=== PATIENT | female | born 1930 | race Caucasian/White ===

== ENCOUNTER 2016-09-11 09:37 | Inpatient (IN) ==
--- NOTE | 2016-09-11 16:05 | Internal Med History&Physical ---
Date of Encounter: 09/11/16 Time of Encounter: 16:03 Assessment and Plan (1) Arthritis of left knee Current visit: No Status: Chronic Patient's initial complaint was to do preop workup for her knee replacement. But this was complicated by medical issues. (2) Hypomagnesemia Current visit: No Status: Acute Rarely cardiac arrest was secondary to the hypomagnesemia. This is being corrected (3) Hypokalemia Current visit: No Status: Resolved This might of been a contributing factor (4) Atrial arrhythmia Current visit: No Status: Acute There is to be stable at this point (5) CAD (coronary artery disease) Current visit: No Status: Chronic History of stent Qualifiers: Coronary Disease-Associated Artery/Lesion type: [place] artery [place] vs. transplanted heart: [place] heart Associated angina: without angina Qualified Code(s): I25.10 - Atherosclerotic heart disease of [place] coronary artery without angina pectoris (6) Anemia Current visit: No Status: Acute Qualifiers: Anemia type: other cause Other causes of anemia: acute posthemorrhagic Qualified Code(s): D62 - Acute posthemorrhagic anemia (7) GI bleed Current visit: No Status: Resolved This is resolved Qualifiers: GI bleed type/associated pathology: melena Qualified Code(s): K92.1 - Melena (8) C. difficile diarrhea Current visit: No Status: Acute Today was the last day of antibiotics for the C. difficile Internal Medicine - H&P: HPI Chief complaint: This patient was doing a preoperative workup for a total knee replacement w History of present illness: Ms. Maciel is a 86 year old female The rest was very brief and was found the patient was showing very low magnesium. This is been replaced and she has been stable since. But she also had a UTI and some other issues. Because of that she cannot have her total knee replacement for some time. Now the knees become terribly painful so she was sent here for rehabilitation to help her to be able to ambulate and do some ADLs Past Med Surg Social Fam HX - Past Medical History Medical history: arthritis, coronary artery disease, hyperlipidemia, hypertension Psychiatric history: no psych history - Social History Smoking Status: Never smoker Smokeless Tobacco Status: No Alcohol use: none Drug use: none - Family History Mother Living Status: Hx Family Cardiac Disorders: Yes Hx Family Respiratory Disorders: No Hx Family Cancer: No Hx Family GI Disorders: No Hx Family Endocrine Disorder: Yes (Diabetic) Hx Family Neuromuscular Disorders: No Hx Family Neurologic Disorders: No Hx Family HEENT Disorders: No Hx Family Autoimmune Disorders: No Internal Medicine - H&P: Meds Multivitamin [Multivitamins] 1 tab PO DAILY 04/09/16 [History] Simvastatin [Zocor] 40 mg PO HS 04/09/16 [History] Diclofenac Sodium [Voltaren] 4 gm TP QID PRN 08/23/16 [History] LORazepam [Ativan] 0.5 mg PO TID PRN 08/23/16 [History] Docusate [Colace] 100 mg PO BID capsule 09/11/16 [Rx] MOM Conc [MILK OF MAGNESIA conc] 10 ml PO DAILY PRN #0 ud.liq 09/11/16 [Rx] Magnesium Oxide [Mag-Ox] 400 mg PO TID tablet 09/11/16 [Rx] Metoprolol XL (24 HR) Succ [Toprol Xl] 12.5 mg PO DAILY tab.er.24h 09/11/16 [Rx ] MetroNIDAZOLE [Flagyl] 500 mg PO Q8H tablet 09/11/16 [Rx] Omeprazole [PriLOSEC] 20 mg PO BIDAC capsule. 09/11/16 [Rx] OxyCODONE ER (12 HR) [OxyCONTIN] 20 mg PO Q12HR #6 tab.er.12h 09/11/16 [Rx] OxyCODONE/APAP 7.5/325 [Percocet 7.5/325 MG] 1 each PO Q3HR PRN #12 tablet 09/11 [Rx] Potassium Chloride 20 meq PO DAILY tab.er.prt 09/11/16 [Rx] Sucralfate [Carafate] 1 gm PO TID tablet 09/11/16 [Rx] Allergies No Known Allergies Allergy (Verified 04/09/16 07:21) All Systems PM: A 10-system review of systems was performed and is negative for pertinent findings except as documented above in the HPI. - Constitutional Vitals: Temp Resp BP Pulse Ox 99.3 F 18 107/75 95 09/11/16 15:31 09/11/16 15:31 09/11/16 15:31 09/11/16 15:31 - Head Head exam: Present: atraumatic, normocephalic - Neck Neck exam general surgery: Present: supple, trachea midline. Absent: lymphadenopathy - Respiratory Respiratory exam: Present: CTAB. Absent: accessory muscle use, rales, rhonchi, wheezes - Cardiovascular Cardiovascular exam: Present: RRR, +S1, +S2. Absent: diastolic murmur, gallop, rubs, systolic murmur - GI/Abdominal GI/Abdominal exam: Present: normal bowel sounds, soft, no peritoneal signs. Absent: distended, tenderness - Expanded Lower Extremities Exam Knee exam: Present: tenderness (Entire knee area is very tender. She does not feel that she can weight-bear at this point.) Internal Med - H&P Results - Labs Labs: Labs pending
[2016-09-11] MEDS ORDERED: MOM Conc 10 ML UD.LIQ PO PRN (16:08)
[2016-09-11] MEDS: *HR* OxyCODONE ER (12 HR) 20 MG TABLET PO SCH (17:48)
[2016-09-11] MEDS: MetroNIDAZOLE 500 MG TABLET PO SCH (20:43)
[2016-09-11] MEDS: Magnesium Oxide 400 MG TABLET PO SCH (20:43)
[2016-09-11] MEDS: *HR* OxyCODONE/APAP 7.5/325 TABLET PO PRN (20:43)
[2016-09-11] MEDS: Sucralfate 1 GM TABLET PO SCH (20:43)
[2016-09-12] MEDS: *HR* OxyCODONE ER (12 HR) 20 MG TABLET PO SCH ×2 (05:04→16:56)
[2016-09-12] MEDS: *HR* Enoxaparin 40 MG/0.4 ML SYRINGE SQ SCH (05:04)
[2016-09-12 05:22] LABS: INR 1.3
[2016-09-12 05:25] LABS: Activated Partial Thrombo Time 28.6 Seconds (26.0-36.0)
[2016-09-12 05:26] LABS: Basophils % 0.4 %; Eosinophils % 0.2 %; Hematocrit 31.2 % (35.3-44.9); Hemoglobin 9.9 g/dL (11.5-15.4); Immature Granulocytes % 0.3 % (0-4); Lymphocytes % 20.7 %; Mean Corpuscular HGB Conc 31.7 g/dL (31.6-35.5); Mean Corpuscular Hemoglobin 29.6 pg (28.0-33.3); Mean Corpuscular Volume 93.1 fL (83.0-100.0); Mean Platelet Volume 9.7 fL (9.4-12.4); Monocytes # 1.2 K/mcL (0.0-1.3); Monocytes % 12.6 %; Neutrophils # 6.4 K/mcL (1.6-8.9); Platelet Count 245 K/mcL (140-400); Red Blood Count 3.35 M/mcL (3.82-4.97); Segmented Neutrophils % 65.8 %
[2016-09-12 05:31] LABS: BUN/Creatinine Ratio 18 (6-26); Blood Urea Nitrogen 11 mg/dL (7-20); Carbon Dioxide 22 mEq/L (19-29); Chloride 100 mEq/L (98-109); Glucose 118 mg/dL (70-99); Osmolality,Calculated 276 (280-300); Sodium 133 mEq/L (136-145); eGFR For African Americans > 60 (> 60); eGFR For Non-African Americans > 60 (> 60)
[2016-09-12] MEDS: MetroNIDAZOLE 500 MG TABLET PO SCH ×3 (09:11→22:03)
[2016-09-12] MEDS: *HR* OxyCODONE/APAP 7.5/325 TABLET PO PRN ×3 (09:11→22:06)
[2016-09-12] MEDS: Metoprolol XL (24 HR) Succ 25 MG TAB.ER.24H PO SCH (09:11)
[2016-09-12] MEDS: Magnesium Oxide 400 MG TABLET PO SCH ×3 (09:12→22:04)
[2016-09-12] MEDS: Sucralfate 1 GM TABLET PO SCH ×3 (09:12→22:05)
[2016-09-12] MEDS ORDERED: Lidocaine 1% 20 ML MDV ID ONE (14:11)
[2016-09-12] MEDS ORDERED: MethylPREDNISolone Acet(DEPOT) 40 MG/ML VIAL IM ONE (14:11)
--- NOTE | 2016-09-12 15:01 | Internal Med Progress Note ---
Date of Encounter: 09/12/16 Time of Encounter: 14:59 - Assessment and plan (1) Arthritis of left knee Current Visit: Yes Status: Chronic Assessment and plan: Patient had severe arthritis that was really bothering her and was scheduled for total knee replacement. At her pre-surgical evaluation she had a cardiac arrest in all this is been put on hold (2) Hypomagnesemia Current Visit: No Status: Acute Assessment and plan: They have felt that the possibility of a short cardiac arrest was due to the hypomagnesemia (3) Atrial arrhythmia Current Visit: No Status: Acute Assessment and plan: No evidence of uncontrolled heart rate (4) CAD (coronary artery disease) Current Visit: No Status: Chronic Assessment and plan: By history Qualifiers: Coronary Disease-Associated Artery/Lesion type: [place] artery [place] vs. transplanted heart: [place] heart Associated angina: without angina Qualified Code(s): I25.10 - Atherosclerotic heart disease of [place] coronary artery without angina pectoris (5) Anemia Current Visit: No Status: Chronic Assessment and plan: Noted Qualifiers: Anemia type: other cause Other causes of anemia: acute posthemorrhagic Qualified Code(s): D62 - Acute posthemorrhagic anemia (6) C. difficile diarrhea Current Visit: No Status: Acute Assessment and plan: Resolved - Time Spent With Patient less than 15 minutes - Subjective Interval history: Cimetidine overly is doing well. She still has a lot of pain and anxiety. But she agreed to let Dr. Lucas inject her knee with Depo-Medrol and Xylocaine. I will see if this helps which will allow her to do more therapy. In addition she will be seeing Dr. Sekou Lindsay on Saturday a.m. for similar evaluation injection - Constitutional Vitals: Temp Pulse Resp BP Pulse Ox 98.2 F 99 18 101/74 95 09/12/16 11:14 09/12/16 12:03 09/12/16 12:03 09/12/16 11:14 09/12/16 12:03 - Head Head exam: Present: atraumatic, normal inspection, normocephalic - Neck Neck exam general surgery: Present: supple, trachea midline. Absent: lymphadenopathy - Respiratory Respiratory exam: Present: CTAB. Absent: accessory muscle use, rales, rhonchi, wheezes - Cardiovascular Cardiovascular exam: Present: RRR, +S1, +S2. Absent: diastolic murmur, gallop, rubs, systolic murmur Internal Medicine: Result - Labs CBC & Chem 7: 09/12/16 04:50 09/12/16 04:50 Labs: Short CBC 09/12/16 Range/Units 04:50 WBC 9.7 (4.3-11.1) K/mcL Hgb 9.9 L (11.5-15.4) g/dL Hct 31.2 L (35.3-44.9) % Plt Count 245 (140-400) K/mcL Neutrophils # 6.4 (1.6-8.9) K/mcL BMP 09/12/16 04:50 Sodium 133 L Potassium 5.0 H Chloride 100 Carbon Dioxide 22 BUN 11 Creatinine 0.61 Glucose 118 H Calcium 10.0 Laboratory is okay - ABG Interpretation ABG results: PT/INR, D-dimer PT 14.0 Seconds (9.4-12.1) H 09/12/16 04:50 Consult Discharge Plan - Plan Referrals: Tha Sanchez Jr, MD [Primary Care Provider] -
--- NOTE | 2016-09-12 15:28 | Physcial Medicine-Consult Note ---
Date of Encounter: 09/12/16 Time of Encounter: 15:26 Physical Medicine - AP (1) Arthritis of left knee Status: Chronic Code(s): M17.12 - Unilateral primary osteoarthritis, left knee SNOMED Code(s): 330429106 Physical Medicine - HPI - Data of Consult Consult date: 09/12/16 Requesting Physician: Pan Dawkins DO Primary Care Provider: Tha Sanchez Jr, MD - Consult Narrative Reason for consult: Left knee osteoarthritis/pain History of present illness: Ms. Maciel is a 86 year old female who was admitted for inpatient rehabilitation. She sustained an TN during pre-op testing for an elective left TKA. Patient has been complaining of severe left knee pain and is limited in her ability to participate with therapy due to pain. CC: Pan Dawkins DO Past Med Surg Social Fam HX - Past Medical History Medical history: arthritis, coronary artery disease, hyperlipidemia, hypertension Psychiatric history: no psych history - Social History Smoking Status: Never smoker Smokeless Tobacco Status: No Alcohol use: none Drug use: none - Family History Mother Living Status: Hx Family Cardiac Disorders: Yes Hx Family Respiratory Disorders: No Hx Family Cancer: No Hx Family GI Disorders: No Hx Family Endocrine Disorder: Yes (Diabetic) Hx Family Neuromuscular Disorders: No Hx Family Neurologic Disorders: No Hx Family HEENT Disorders: No Hx Family Autoimmune Disorders: No Medications and Allergies Multivitamin [Multivitamins] 1 tab PO DAILY 04/09/16 [History] Simvastatin [Zocor] 40 mg PO HS 04/09/16 [History] Diclofenac Sodium [Voltaren] 4 gm TP QID PRN 08/23/16 [History] LORazepam [Ativan] 0.5 mg PO TID PRN 08/23/16 [History] Docusate [Colace] 100 mg PO BID capsule 09/11/16 [Rx] MOM Conc [MILK OF MAGNESIA conc] 10 ml PO DAILY PRN #0 ud.liq 09/11/16 [Rx] Magnesium Oxide [Mag-Ox] 400 mg PO TID tablet 09/11/16 [Rx] Metoprolol XL (24 HR) Succ [Toprol Xl] 12.5 mg PO DAILY tab.er.24h 09/11/16 [Rx ] MetroNIDAZOLE [Flagyl] 500 mg PO Q8H tablet 09/11/16 [Rx] Omeprazole [PriLOSEC] 20 mg PO BIDAC capsule. 09/11/16 [Rx] OxyCODONE ER (12 HR) [OxyCONTIN] 20 mg PO Q12HR #6 tab.er.12h 09/11/16 [Rx] OxyCODONE/APAP 7.5/325 [Percocet 7.5/325 MG] 1 each PO Q3HR PRN #12 tablet 09/11 [Rx] Potassium Chloride 20 meq PO DAILY tab.er.prt 09/11/16 [Rx] Sucralfate [Carafate] 1 gm PO TID tablet 09/11/16 [Rx] Allergies No Known Allergies Allergy (Verified 04/09/16 07:21) - Cardiovascular Cardiovascular: Present: chest pain with activity. Absent: chest pain - Respiratory Respiratory: Absent: dyspnea - Musculoskeletal Musculoskeletal: Present: arthralgias Physical Medicine - Exam - Constitutional Vitals: Temp Pulse Resp BP Pulse Ox 98.2 F 99 18 101/74 95 09/12/16 11:14 09/12/16 12:03 09/12/16 12:03 09/12/16 11:14 09/12/16 12:03 General appearance: cooperative, no acute distress - Extremities Exam Extremities exam: Absent: calf tenderness Additional comments: Left knee is swollen. She complains of pain with PROM of the knee. Pain with palpation of the medial and lateral joint lines. Physical Medicine - Results - Labs CBC & Chem 7: 09/12/16 04:50 09/12/16 04:50 Labs: Short CBC 09/12/16 Range/Units 04:50 WBC 9.7 (4.3-11.1) K/mcL Hgb 9.9 L (11.5-15.4) g/dL Hct 31.2 L (35.3-44.9) % Plt Count 245 (140-400) K/mcL Neutrophils # 6.4 (1.6-8.9) K/mcL BMP 09/12/16 04:50 Sodium 133 L Potassium 5.0 H Chloride 100 Carbon Dioxide 22 BUN 11 Creatinine 0.61 Glucose 118 H Calcium 10.0 Procedures: Physical Medicine - Joint Aspiration/Injection Joint Aspiration/Injection 1 Consent obtained: verbal consent Time out performed: No Side of body: left Joint aspirated: knee Ultrasound guidance: No Skin prep: sterile prep and drape Local anesthesia used: other Amount of anesthesia used (mLs): 0 Needle size used: 22G Medication injected, if any: Methylprednisolone Patient tolerated procedure: well, no complications Complications: none Consult Discharge Plan - Plan Referrals: Tha Sanchez Jr, MD [Primary Care Provider] -
[2016-09-13] MEDS: *HR* Enoxaparin 40 MG/0.4 ML SYRINGE SQ SCH (06:38)
[2016-09-13] MEDS: *HR* OxyCODONE ER (12 HR) 20 MG TABLET PO SCH ×2 (06:38→18:18)
[2016-09-13] MEDS: Metoprolol XL (24 HR) Succ 25 MG TAB.ER.24H PO SCH (08:54)
[2016-09-13] MEDS: MetroNIDAZOLE 500 MG TABLET PO SCH ×3 (08:55→21:55)
[2016-09-13] MEDS: Sucralfate 1 GM TABLET PO SCH ×3 (08:55→21:55)
[2016-09-13] MEDS: *HR* OxyCODONE/APAP 7.5/325 TABLET PO PRN ×3 (08:55→21:55)
--- NOTE | 2016-09-13 15:06 | Internal Med Progress Note ---
Date of Encounter: 09/13/16 Time of Encounter: 15:05 - Assessment and plan (1) Arthritis of left knee Current Visit: Yes Status: Chronic Assessment and plan: Asians problems all stem from her knee pain. This lady was working full-time woke up Saturday morning 2 weeks ago her week ago and noted that her knee her (2) Hypomagnesemia Current Visit: No Status: Acute Assessment and plan: Her magnesium was current (3) Atrial arrhythmia Current Visit: No Status: Acute Assessment and plan: No evidence of problems with heart rate (4) CAD (coronary artery disease) Current Visit: No Status: Chronic Assessment and plan: By history Qualifiers: Coronary Disease-Associated Artery/Lesion type: [place] artery [place] vs. transplanted heart: [place] heart Associated angina: without angina Qualified Code(s): I25.10 - Atherosclerotic heart disease of [place] coronary artery without angina pectoris (5) Anemia Current Visit: No Status: Chronic Qualifiers: Anemia type: other cause Other causes of anemia: acute posthemorrhagic Qualified Code(s): D62 - Acute posthemorrhagic anemia (6) C. difficile diarrhea Current Visit: No Status: Acute Assessment and plan: Resolved - Subjective Interval history: Well the patient today states knee feels a little better but she still resistant staph moving her. So we have told her now the insurance seizures she is not cooperating they will make her be discharged - Constitutional Vitals: Temp Pulse Resp BP Pulse Ox 97.9 F 93 16 106/62 94 09/13/16 07:05 09/13/16 07:05 09/13/16 07:05 09/13/16 07:05 09/13/16 07:05 - Head Head exam: Present: atraumatic, normal inspection, normocephalic - Respiratory Respiratory exam: Present: CTAB. Absent: accessory muscle use, rales, rhonchi, wheezes - Cardiovascular Cardiovascular exam: Present: RRR, +S1, +S2. Absent: diastolic murmur, gallop, rubs, systolic murmur - GI/Abdominal GI/Abdominal exam: Present: normal bowel sounds, soft, no peritoneal signs. Absent: distended, tenderness Internal Medicine: Result - Labs CBC & Chem 7: 09/12/16 04:50 09/12/16 04:50 Labs: Lab is stable - ABG Interpretation ABG results: PT/INR, D-dimer PT 14.0 Seconds (9.4-12.1) H 09/12/16 04:50 Consult Discharge Plan - Plan Referrals: Tha Sanchez Jr, MD [Primary Care Provider] -
[2016-09-13] MEDS: Magnesium Oxide 400 MG TABLET PO SCH ×3 (15:21→21:55)
[2016-09-14] MEDS: *HR* Enoxaparin 40 MG/0.4 ML SYRINGE SQ SCH (05:28)
[2016-09-14] MEDS: *HR* OxyCODONE ER (12 HR) 20 MG TABLET PO SCH ×2 (05:28→18:12)
[2016-09-14] MEDS: Sucralfate 1 GM TABLET PO SCH ×3 (09:02→21:56)
[2016-09-14] MEDS: Metoprolol XL (24 HR) Succ 25 MG TAB.ER.24H PO SCH (09:02)
[2016-09-14] MEDS: *HR* OxyCODONE/APAP 7.5/325 TABLET PO PRN ×3 (09:02→21:58)
[2016-09-14] MEDS: MetroNIDAZOLE 500 MG TABLET PO SCH ×3 (09:03→21:57)
[2016-09-14] MEDS: Magnesium Oxide 400 MG TABLET PO SCH ×3 (09:03→21:57)
--- NOTE | 2016-09-14 14:46 | Internal Med Progress Note ---
Date of Encounter: 09/14/16 Time of Encounter: 14:44 - Assessment and plan (1) Arthritis of left knee Current Visit: Yes Status: Chronic Assessment and plan: Patient has had a lot of painful problems with her knee since Saturday a week. She was scheduled for total knee replacement but upon preop testing at a cardiac arrest (2) Hypomagnesemia Current Visit: No Status: Acute Assessment and plan: Will check the magnesium (3) Atrial arrhythmia Current Visit: No Status: Acute Assessment and plan: No evidence right now (4) CAD (coronary artery disease) Current Visit: No Status: Chronic Qualifiers: Coronary Disease-Associated Artery/Lesion type: [place] artery [place] vs. transplanted heart: [place] heart Associated angina: without angina Qualified Code(s): I25.10 - Atherosclerotic heart disease of [place] coronary artery without angina pectoris (5) Anemia Current Visit: No Status: Chronic Assessment and plan: G of anemia Qualifiers: Anemia type: other cause Other causes of anemia: acute posthemorrhagic Qualified Code(s): D62 - Acute posthemorrhagic anemia (6) C. difficile diarrhea Current Visit: No Status: Acute Assessment and plan: Resolved - Time Spent With Patient less than 15 minutes - Constitutional Vitals: Temp Pulse Resp BP Pulse Ox 97.7 F 104 18 102/68 94 09/14/16 06:36 09/14/16 06:36 09/14/16 06:36 09/14/16 06:36 09/14/16 06:36 - Head Head exam: Present: atraumatic, normal inspection, normocephalic - Neck Neck exam general surgery: Present: supple, trachea midline. Absent: lymphadenopathy - Respiratory Respiratory exam: Present: CTAB. Absent: accessory muscle use, rales, rhonchi, wheezes - Cardiovascular Cardiovascular exam: Present: RRR, +S1, +S2. Absent: diastolic murmur, gallop, rubs, systolic murmur Internal Medicine: Result - Labs CBC & Chem 7: 09/12/16 04:50 09/12/16 04:50 Labs: Lab is stable - ABG Interpretation ABG results: PT/INR, D-dimer PT 14.0 Seconds (9.4-12.1) H 09/12/16 04:50 Consult Discharge Plan - Plan Referrals: Tha Sanchez Jr, MD [Primary Care Provider] -
[2016-09-14] MEDS: *HR* LORazepam 0.5 MG TABLET PO PRN (21:58)
[2016-09-15 05:21] LABS: BUN/Creatinine Ratio 33 (6-26); Blood Urea Nitrogen 21 mg/dL (7-20); Calcium 10.3 mg/dL (8.6-10.8); Carbon Dioxide 21 mEq/L (19-29); Chloride 98 mEq/L (98-109); Glucose 97 mg/dL (70-99); Osmolality,Calculated 271 (280-300); Potassium 5.2 mEq/L (3.5-4.5); Sodium 129 mEq/L (136-145); eGFR For African Americans > 60 (> 60); eGFR For Non-African Americans > 60 (> 60)
[2016-09-15] MEDS: *HR* Enoxaparin 40 MG/0.4 ML SYRINGE SQ SCH (06:34)
[2016-09-15] MEDS: *HR* OxyCODONE ER (12 HR) 20 MG TABLET PO SCH ×2 (06:35→16:55)
[2016-09-15] MEDS: *HR* OxyCODONE/APAP 7.5/325 TABLET PO PRN ×2 (09:10→21:49)
[2016-09-15] MEDS: Sucralfate 1 GM TABLET PO SCH ×3 (09:11→21:44)
[2016-09-15] MEDS: Metoprolol XL (24 HR) Succ 25 MG TAB.ER.24H PO SCH (09:11)
[2016-09-15] MEDS: MetroNIDAZOLE 500 MG TABLET PO SCH ×3 (09:11→21:44)
[2016-09-15] MEDS: Magnesium Oxide 400 MG TABLET PO SCH ×3 (09:11→21:45)
--- NOTE | 2016-09-15 09:30 | Internal Med Progress Note ---
Date of Encounter: 09/15/16 Time of Encounter: 09:28 - Assessment and plan (1) Weakness Current Visit: Yes Status: Chronic Assessment and plan: PT OT working on improving strength. Has electrolytes issues. Sodium is down to 129. Potassium is up at 5.2 but the patient was given potassium supplement. BUN is up to 21. We will give fluid bolus. Watch electrolytes. - Time Spent With Patient less than 15 minutes - Subjective Interval history: Still complains of generalized weakness. Still complains of chronic pain. Refusing to drink. Afraid of getting up and going to the bedside commode. No shortness of breath. No chest pain - Constitutional Vitals: Temp Pulse Resp BP Pulse Ox 98.2 F 99 18 110/73 94 09/15/16 06:55 09/15/16 06:55 09/15/16 06:55 09/15/16 06:55 09/15/16 06:55 General appearance: Present: cachectic, A&O X 3, no acute distress - Respiratory Respiratory exam: Present: CTAB. Absent: accessory muscle use, rales, rhonchi, wheezes - Cardiovascular Cardiovascular exam: Present: RRR, +S1, +S2. Absent: diastolic murmur, gallop, rubs, systolic murmur - GI/Abdominal GI/Abdominal exam: Present: normal bowel sounds, soft, no peritoneal signs. Absent: distended, tenderness - Extremities Exam Extremities exam: Present: warm, radial pulses palpable and symetrical. Absent : calf tenderness, cyanotic, pedal edema Internal Medicine: Result - Labs CBC & Chem 7: 09/12/16 04:50 09/15/16 05:00 Labs: BMP 09/15/16 05:00 Sodium 129 L Potassium 5.2 H Chloride 98 Carbon Dioxide 21 BUN 21 H Creatinine 0.63 Glucose 97 Calcium 10.3 - ABG Interpretation ABG results: PT/INR, D-dimer PT 14.0 Seconds (9.4-12.1) H 09/12/16 04:50 Consult Discharge Plan - Plan Referrals: Tha Sanchez Jr, MD [Primary Care Provider] -
[2016-09-15] MEDS: *HR* LORazepam 0.5 MG TABLET PO PRN (21:49)
[2016-09-16 05:12] LABS: BUN/Creatinine Ratio 27 (6-26); Blood Urea Nitrogen 19 mg/dL (7-20); Calcium 10.1 mg/dL (8.6-10.8); Carbon Dioxide 20 mEq/L (19-29); Chloride 97 mEq/L (98-109); Glucose 97 mg/dL (70-99); Osmolality,Calculated 270 (280-300); Potassium 5.5 mEq/L (3.5-4.5); Sodium 129 mEq/L (136-145); eGFR For African Americans > 60 (> 60); eGFR For Non-African Americans > 60 (> 60)
[2016-09-16] MEDS: *HR* Enoxaparin 40 MG/0.4 ML SYRINGE SQ SCH (05:29)
[2016-09-16] MEDS: *HR* OxyCODONE ER (12 HR) 20 MG TABLET PO SCH ×2 (05:29→17:36)
[2016-09-16] MEDS: *HR* OxyCODONE/APAP 7.5/325 TABLET PO PRN ×3 (08:59→20:35)
[2016-09-16] MEDS: Metoprolol XL (24 HR) Succ 25 MG TAB.ER.24H PO SCH (08:59)
[2016-09-16] MEDS: Sucralfate 1 GM TABLET PO SCH ×3 (08:59→20:34)
[2016-09-16] MEDS: Magnesium Oxide 400 MG TABLET PO SCH ×3 (08:59→20:35)
[2016-09-16] MEDS: MetroNIDAZOLE 500 MG TABLET PO SCH ×3 (08:59→20:34)
--- NOTE | 2016-09-16 10:53 | Internal Med Progress Note ---
Date of Encounter: 09/16/16 Time of Encounter: 10:51 - Assessment and plan (1) Arthritis of left knee Current Visit: Yes Status: Chronic Assessment and plan: The knee really was acute and it is somewhat improved since he injections. (2) Hypomagnesemia Current Visit: No Status: Acute Assessment and plan: checking magnesium. Current lab is 2. (3) Atrial arrhythmia Current Visit: No Status: Acute Assessment and plan: She is stable and heart rate (4) CAD (coronary artery disease) Current Visit: No Status: Chronic Qualifiers: Coronary Disease-Associated Artery/Lesion type: [place] artery [place] vs. transplanted heart: [place] heart Associated angina: without angina Qualified Code(s): I25.10 - Atherosclerotic heart disease of [place] coronary artery without angina pectoris (5) Anemia Current Visit: No Status: Chronic Qualifiers: Anemia type: other cause Other causes of anemia: acute posthemorrhagic Qualified Code(s): D62 - Acute posthemorrhagic anemia (6) C. difficile diarrhea Current Visit: No Status: Acute - Subjective Interval history: Patient is actually moving better with less complaining. - Constitutional Vitals: Temp Pulse Resp BP Pulse Ox 98.7 F 100 20 105/63 97 09/16/16 06:56 09/16/16 06:56 09/16/16 06:56 09/16/16 06:56 09/16/16 06:56 General appearance: Present: cachectic, A&O X 3, no acute distress - Head Head exam: Present: atraumatic, normocephalic - Neck Neck exam general surgery: Present: supple, trachea midline. Absent: lymphadenopathy - Respiratory Respiratory exam: Present: CTAB. Absent: accessory muscle use, rales, rhonchi, wheezes - Cardiovascular Cardiovascular exam: Present: RRR, +S1, +S2. Absent: diastolic murmur, gallop, rubs, systolic murmur Internal Medicine: Result - Labs CBC & Chem 7: 09/12/16 04:50 09/16/16 04:40 Labs: BMP 09/16/16 04:40 Sodium 129 L Potassium 5.5 H Chloride 97 L Carbon Dioxide 20 BUN 19 Creatinine 0.71 Glucose 97 Calcium 10.1 See the labs are potassium supplement little bit of blood clear why her sodium slightly down this may be dilutional and I am going to add some Lasix - ABG Interpretation ABG results: PT/INR, D-dimer PT 14.0 Seconds (9.4-12.1) H 09/12/16 04:50 Consult Discharge Plan - Plan Referrals: Tha Sanchez Jr, MD [Primary Care Provider] -
[2016-09-16] MEDS: Furosemide 20 MG TABLET PO SCH ×2 (11:52→17:36)
[2016-09-16] MEDS: *HR* LORazepam 0.5 MG TABLET PO PRN (20:35)
[2016-09-17] MEDS: *HR* Enoxaparin 40 MG/0.4 ML SYRINGE SQ SCH (05:32)
[2016-09-17] MEDS: *HR* OxyCODONE ER (12 HR) 20 MG TABLET PO SCH ×2 (05:33→17:23)
[2016-09-17 06:10] LABS: Basophils % 0.2 %; Eosinophils % 0.1 %; Hematocrit 26.4 % (35.3-44.9); Hemoglobin 8.7 g/dL (11.5-15.4); Immature Granulocytes % 0.6 % (0-4); Lymphocytes # 1.7 K/mcL (0.6-4.6); Lymphocytes % 14.8 %; Mean Corpuscular Hemoglobin 30.5 pg (28.0-33.3); Mean Corpuscular Volume 92.6 fL (83.0-100.0); Mean Platelet Volume 9.8 fL (9.4-12.4); Monocytes # 1.6 K/mcL (0.0-1.3); Monocytes % 14.1 %; Neutrophils # 7.9 K/mcL (1.6-8.9); Platelet Count 325 K/mcL (140-400); Red Blood Count 2.85 M/mcL (3.82-4.97); Red Cell Distribution Width 14.8 % (11.5-14.5); Segmented Neutrophils % 70.2 %
[2016-09-17 06:25] LABS: BUN/Creatinine Ratio 28 (6-26); Blood Urea Nitrogen 18 mg/dL (7-20); Calcium 9.6 mg/dL (8.6-10.8); Carbon Dioxide 23 mEq/L (19-29); Chloride 96 mEq/L (98-109); Glucose 113 mg/dL (70-99); Osmolality,Calculated 269 (280-300); Potassium 4.3 mEq/L (3.5-4.5); Sodium 128 mEq/L (136-145); eGFR For African Americans > 60 (> 60); eGFR For Non-African Americans > 60 (> 60)
[2016-09-17] MEDS: Metoprolol XL (24 HR) Succ 25 MG TAB.ER.24H PO SCH (08:31)
[2016-09-17] MEDS: MetroNIDAZOLE 500 MG TABLET PO SCH ×3 (08:31→21:23)
[2016-09-17] MEDS: Sucralfate 1 GM TABLET PO SCH ×3 (08:32→21:22)
[2016-09-17] MEDS: *HR* OxyCODONE/APAP 7.5/325 TABLET PO PRN ×3 (08:32→21:24)
[2016-09-17] MEDS: Magnesium Oxide 400 MG TABLET PO SCH ×3 (08:32→21:23)
[2016-09-17] MEDS: Furosemide 20 MG TABLET PO SCH ×2 (08:32→17:23)
[2016-09-17] MEDS: *HR* LORazepam 0.5 MG TABLET PO PRN ×2 (14:52→21:24)
--- NOTE | 2016-09-17 17:37 | Internal Med Progress Note ---
Date of Encounter: 09/17/16 Time of Encounter: 17:36 - Assessment and plan (1) Arthritis of left knee Current Visit: Yes Status: Chronic Assessment and plan: Patient will eventually hopefully get a total knee replacement. But the injections of temporarily helped her move about (2) Hypomagnesemia Current Visit: No Status: Acute Assessment and plan: Knees he was checked and seemed to be 2.0 (3) Atrial arrhythmia Current Visit: No Status: Acute Assessment and plan: And no evidence of uncontrolled heart rate (4) CAD (coronary artery disease) Current Visit: No Status: Chronic Assessment and plan: By history Qualifiers: Coronary Disease-Associated Artery/Lesion type: [place] artery [place] vs. transplanted heart: [place] heart Associated angina: without angina Qualified Code(s): I25.10 - Atherosclerotic heart disease of [place] coronary artery without angina pectoris (5) Anemia Current Visit: No Status: Chronic Assessment and plan: Noted Qualifiers: Anemia type: other cause Other causes of anemia: acute posthemorrhagic Qualified Code(s): D62 - Acute posthemorrhagic anemia (6) C. difficile diarrhea Current Visit: No Status: Acute Assessment and plan: Resolved - Time Spent With Patient less than 15 minutes - Subjective Interval history: Patient is actually moving better with less complaining. Patient is using the bedside commode and she is using wheelchair to get to the gym but then is walking parallel bar's etc. - Constitutional Vitals: Temp Pulse Resp BP Pulse Ox 98.3 F 103 17 110/67 95 09/17/16 07:35 09/17/16 07:35 09/17/16 07:35 09/17/16 07:35 09/17/16 07:35 General appearance: Present: cachectic, A&O X 3, no acute distress - Head Head exam: Present: atraumatic, normal inspection, normocephalic - Neck Neck exam general surgery: Present: supple, trachea midline. Absent: lymphadenopathy - Respiratory Respiratory exam: Present: CTAB. Absent: accessory muscle use, rales, rhonchi, wheezes - Cardiovascular Cardiovascular exam: Present: RRR, +S1, +S2. Absent: diastolic murmur, gallop, rubs, systolic murmur Internal Medicine: Result - Labs CBC & Chem 7: 09/17/16 05:15 09/17/16 05:15 Labs: Short CBC 09/17/16 Range/Units 05:15 WBC 11.3 H (4.3-11.1) K/mcL Hgb 8.7 L (11.5-15.4) g/dL Hct 26.4 L (35.3-44.9) % Plt Count 325 (140-400) K/mcL Neutrophils # 7.9 (1.6-8.9) K/mcL BMP 09/17/16 05:15 Sodium 128 L Potassium 4.3 D Chloride 96 L Carbon Dioxide 23 BUN 18 Creatinine 0.65 Glucose 113 H Calcium 9.6 - ABG Interpretation ABG results: PT/INR, D-dimer PT 14.0 Seconds (9.4-12.1) H 09/12/16 04:50 Consult Discharge Plan - Plan Referrals: Tha Sanchez Jr, MD [Primary Care Provider] -
[2016-09-18] MEDS: *HR* Enoxaparin 40 MG/0.4 ML SYRINGE SQ SCH (05:25)
[2016-09-18] MEDS: *HR* OxyCODONE ER (12 HR) 20 MG TABLET PO SCH ×2 (05:26→17:58)
[2016-09-18] MEDS: Furosemide 20 MG TABLET PO SCH (08:28)
[2016-09-18] MEDS: Magnesium Oxide 400 MG TABLET PO SCH ×3 (08:28→20:42)
[2016-09-18] MEDS: *HR* OxyCODONE/APAP 7.5/325 TABLET PO PRN ×4 (08:28→20:43)
[2016-09-18] MEDS: Metoprolol XL (24 HR) Succ 25 MG TAB.ER.24H PO SCH (08:29)
[2016-09-18] MEDS: MetroNIDAZOLE 500 MG TABLET PO SCH ×3 (08:29→20:43)
[2016-09-18] MEDS: Sucralfate 1 GM TABLET PO SCH ×3 (08:29→20:42)
[2016-09-18] MEDS: *HR* LORazepam 0.5 MG TABLET PO PRN ×2 (10:05→20:42)
--- NOTE | 2016-09-18 11:55 | Internal Med Progress Note ---
Date of Encounter: 09/18/16 Time of Encounter: 11:53 - Assessment and plan (1) Arthritis of left knee Current Visit: Yes Status: Chronic Assessment and plan: CPT OT notes the pain is improved patient is doing a little more each day (2) Hypomagnesemia Current Visit: No Status: Acute Assessment and plan: Last magnesium was normal rechecking (3) Atrial arrhythmia Current Visit: No Status: Acute Assessment and plan: No evidence of uncontrolled heart rate (4) CAD (coronary artery disease) Current Visit: No Status: Chronic Assessment and plan: History Qualifiers: Coronary Disease-Associated Artery/Lesion type: [place] artery [place] vs. transplanted heart: [place] heart Associated angina: without angina Qualified Code(s): I25.10 - Atherosclerotic heart disease of [place] coronary artery without angina pectoris (5) Anemia Current Visit: No Status: Chronic Assessment and plan: Noted Qualifiers: Anemia type: other cause Other causes of anemia: acute posthemorrhagic Qualified Code(s): D62 - Acute posthemorrhagic anemia (6) C. difficile diarrhea Current Visit: No Status: Resolved Assessment and plan: Resolve - Time Spent With Patient less than 15 minutes - Subjective Interval history: Continue to move better walked a little bit in the room and in the gym. Otherwise using wheelchair. Still complaining of pain but it is improved - Constitutional Vitals: Temp Pulse Resp BP Pulse Ox 98.4 F 103 16 100/64 95 09/18/16 06:00 09/18/16 06:00 09/18/16 06:00 09/18/16 06:00 09/18/16 06:00 General appearance: Present: cachectic, A&O X 3, no acute distress - Head Head exam: Present: atraumatic, normocephalic - Neck Neck exam general surgery: Present: supple, trachea midline. Absent: lymphadenopathy - Respiratory Respiratory exam: Present: CTAB. Absent: accessory muscle use, rales, rhonchi, wheezes - Cardiovascular Cardiovascular exam: Present: RRR, +S1, +S2. Absent: diastolic murmur, gallop, rubs, systolic murmur - GI/Abdominal GI/Abdominal exam: Present: normal bowel sounds, soft, no peritoneal signs. Absent: distended, tenderness Internal Medicine: Result - Labs CBC & Chem 7: 09/17/16 05:15 09/17/16 05:15 Labs: Sodium is still low the patient's. Osmolality is still low to finger try to increase Lasix concentrator sodium. I am also going to recheck magnesium - ABG Interpretation ABG results: PT/INR, D-dimer PT 14.0 Seconds (9.4-12.1) H 09/12/16 04:50 Consult Discharge Plan - Plan Referrals: Tha Sanchez Jr, MD [Primary Care Provider] -
[2016-09-18] MEDS: Furosemide 40 MG TABLET PO SCH ×2 (12:45→17:58)
[2016-09-19] MEDS: *HR* OxyCODONE/APAP 7.5/325 TABLET PO PRN ×4 (04:29→20:29)
[2016-09-19] MEDS: *HR* OxyCODONE ER (12 HR) 20 MG TABLET PO SCH ×2 (04:55→18:04)
[2016-09-19] MEDS: *HR* Enoxaparin 40 MG/0.4 ML SYRINGE SQ SCH (04:55)
[2016-09-19 05:40] LABS: BUN/Creatinine Ratio 26 (6-26); Blood Urea Nitrogen 17 mg/dL (7-20); Calcium 9.7 mg/dL (8.6-10.8); Carbon Dioxide 24 mEq/L (19-29); Chloride 95 mEq/L (98-109); Glucose 96 mg/dL (70-99); Osmolality,Calculated 273 (280-300); Potassium 3.8 mEq/L (3.5-4.5); Sodium 131 mEq/L (136-145); eGFR For African Americans > 60 (> 60); eGFR For Non-African Americans > 60 (> 60)
[2016-09-19] MEDS: MetroNIDAZOLE 500 MG TABLET PO SCH ×3 (08:06→20:29)
[2016-09-19] MEDS: Sucralfate 1 GM TABLET PO SCH ×3 (08:06→20:28)
[2016-09-19] MEDS: Magnesium Oxide 400 MG TABLET PO SCH ×3 (08:07→20:29)
[2016-09-19] MEDS: Metoprolol XL (24 HR) Succ 25 MG TAB.ER.24H PO SCH (08:07)
[2016-09-19] MEDS: Furosemide 40 MG TABLET PO SCH ×2 (08:07→16:02)
[2016-09-19] MEDS: *HR* LORazepam 0.5 MG TABLET PO PRN ×2 (08:07→20:29)
--- NOTE | 2016-09-19 11:39 | Internal Med Progress Note ---
Date of Encounter: 09/19/16 Time of Encounter: 11:37 - Assessment and plan (1) Arthritis of left knee Current Visit: Yes Status: Chronic Assessment and plan: Patient is here for pain in the left knee which she could not ambulate. Probably an acute inflammation or arthritis and I will start some steroids now. She did have the knee injected which has improved it some (2) Hypomagnesemia Current Visit: No Status: Acute Assessment and plan: Seems to be stable now. (3) Atrial arrhythmia Current Visit: No Status: Acute Assessment and plan: No evidence of uncontrolled heart rate (4) CAD (coronary artery disease) Current Visit: No Status: Chronic Qualifiers: Coronary Disease-Associated Artery/Lesion type: [place] artery [place] vs. transplanted heart: [place] heart Associated angina: without angina Qualified Code(s): I25.10 - Atherosclerotic heart disease of [place] coronary artery without angina pectoris (5) Anemia Current Visit: No Status: Chronic Qualifiers: Anemia type: other cause Other causes of anemia: acute posthemorrhagic Qualified Code(s): D62 - Acute posthemorrhagic anemia - Subjective Interval history: Continue to move better walked a little bit in the room and in the gym. Otherwise using wheelchair. Still complaining of pain but it is improved. In the gym working with the therapist of there will start some steroids for her to reduce any knee inflammation and may be present. - Constitutional Vitals: Temp Pulse Resp BP Pulse Ox 97.8 F 74 18 101/54 94 09/19/16 07:13 09/19/16 07:13 09/19/16 07:13 09/19/16 08:00 09/19/16 07:13 General appearance: Present: cachectic, A&O X 3, no acute distress - Head Head exam: Present: atraumatic, normal inspection, normocephalic - Neck Neck exam general surgery: Present: supple, trachea midline. Absent: lymphadenopathy - Respiratory Respiratory exam: Present: CTAB. Absent: accessory muscle use, rales, rhonchi, wheezes - Cardiovascular Cardiovascular exam: Present: RRR, +S1, +S2. Absent: diastolic murmur, gallop, rubs, systolic murmur Internal Medicine: Result - Labs CBC & Chem 7: 09/17/16 05:15 09/19/16 04:50 Labs: BMP 09/19/16 04:50 Sodium 131 L Potassium 3.8 Chloride 95 L Carbon Dioxide 24 BUN 17 Creatinine 0.66 Glucose 96 Calcium 9.7 Labs stable. The lab is improve the sodium is up a little bit benign did this via some diuresis. My impression was that this was dilutional - ABG Interpretation ABG results: PT/INR, D-dimer PT 14.0 Seconds (9.4-12.1) H 09/12/16 04:50 Consult Discharge Plan - Plan Referrals: Tha Sanchez Jr, MD [Primary Care Provider] -
[2016-09-19] MEDS ORDERED: PredniSONE 20 MG TABLET PO ONE (11:41)
--- NOTE | 2016-09-19 15:35 | Psychological Evaluation ---
Date of Encounter: 09/19/16 Time of Encounter: 10:00 History of Present Illness History of present illness: Ms. Maciel is an 86 year old female who was admitted to [facility] to address deconditioning and to improve her endurance. She had been at the hospital to undergo a total knee replacement when she suffered a heart attack. Her knee replacement surgery has been postponed pending increased strength and endurance. She was seen to assess her current cognitive and emotional functioning. Past Medical History Medical history: Significant for arthritis, coronary artery disease, hyperlipidemia and HTN. - Psychiatric History Additional Psychiatric History: There is no history of psychiatric hospitalization or mental health counseling. Ms. Maciel acknowledged that she has been prescribed "nerve pills" by her physician and has taken 3/day while at [facility]. Home Medications and Allergies Multivitamin [Multivitamins] 1 tab PO DAILY 04/09/16 [History] Simvastatin [Zocor] 40 mg PO HS 04/09/16 [History] Diclofenac Sodium [Voltaren] 4 gm TP QID PRN 08/23/16 [History] LORazepam [Ativan] 0.5 mg PO TID PRN 08/23/16 [History] Docusate [Colace] 100 mg PO BID capsule 09/11/16 [Rx] MOM Conc [MILK OF MAGNESIA conc] 10 ml PO DAILY PRN #0 ud.liq 09/11/16 [Rx] Magnesium Oxide [Mag-Ox] 400 mg PO TID tablet 09/11/16 [Rx] Metoprolol XL (24 HR) Succ [Toprol Xl] 12.5 mg PO DAILY tab.er.24h 09/11/16 [Rx ] MetroNIDAZOLE [Flagyl] 500 mg PO Q8H tablet 09/11/16 [Rx] Omeprazole [PriLOSEC] 20 mg PO BIDAC capsule. 09/11/16 [Rx] OxyCODONE ER (12 HR) [OxyCONTIN] 20 mg PO Q12HR #6 tab.er.12h 09/11/16 [Rx] OxyCODONE/APAP 7.5/325 [Percocet 7.5/325 MG] 1 each PO Q3HR PRN #12 tablet 09/11 [Rx] Potassium Chloride 20 meq PO DAILY tab.er.prt 09/11/16 [Rx] Sucralfate [Carafate] 1 gm PO TID tablet 09/11/16 [Rx] Allergies No Known Allergies Allergy (Verified 04/09/16 07:21) Social History - Social History Social History: Ms. Maciel lives with granddaughters and other family members. One of her granddaughters suddenly (June 12, 2016) of a heart attack while at Ms. Maciel's home. Another granddaughter who has spina bifida lives with Ms. Maciel as do several of her grandchildren. Ms. Maciel has 4 daughters and 1 son. A daughter lives in [place], another in [place], one in [place] and the fourth in [place]. Her son lives in [place]. 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 She reported that she kept busy. 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 She was fairly independent in her daily functioning but stated that her children would come by and help her pay bills and take care of personal papers. - Tobacco Use Smoking Status: Never smoker - Alcohol Use Alcohol Use: none Cognitive/Emotional Assessment - Cognitive Ability Additional Findings: Ms. Maciel was alert and oriented to person, place and time. She initially struggled providing the year ("1926") and the month but was able to self- correct and eventually came up with the current year and month. She exhibited some signs of confusion ("May, June, February") which she attributed to having just taken a pain medication. Speech was fluent, clear and effective. Thought processes were logical, coherent and goal-directed. She was talkative. She presented as pain-focused and made repeated statements that she hopes "my strength improves". - Emotional Status Additional Findings: Ms. Maciel was pleasant and cooperative. She was sitting in a wheelchair and focused the interview on her pain and inability to put weight on her left leg due to intense pain. She has had pain for several years and was able to stand on her feet for most of the day at work, but reported that her pain was managed with Percocet. She reportedly took 3-4 Percocet a day and was able to tolerate her pain. She has been experiencing intolerable pain since the knee surgery was postponed. She rated her current level of pain as "7-8" but it climbs to "10 " with activities. She had an injection in her left knee last week which has helped her get out of bed, but she is unable to walk functional distances. Ms. Maciel presented with somber mood and appropriate affect. She stated that her main goal is to "get out of her to get back to work and be myself again." Assessment & Plan - Diagnosis (1) Adjustment disorder with mixed anxiety and depressed mood Procedures - Intervention Interventions: Supportive Counseling - Session Time Session Start Time: 10:00 Session Stop Time: 10:30
[2016-09-20] MEDS: *HR* Enoxaparin 40 MG/0.4 ML SYRINGE SQ SCH (04:52)
[2016-09-20] MEDS: *HR* OxyCODONE ER (12 HR) 20 MG TABLET PO SCH ×2 (04:53→21:15)
[2016-09-20] MEDS: *HR* OxyCODONE/APAP 7.5/325 TABLET PO PRN ×2 (08:21→15:52)
[2016-09-20] MEDS: Metoprolol XL (24 HR) Succ 25 MG TAB.ER.24H PO SCH (08:21)
[2016-09-20] MEDS: MetroNIDAZOLE 500 MG TABLET PO SCH ×3 (08:21→21:14)
[2016-09-20] MEDS: Furosemide 40 MG TABLET PO SCH ×2 (08:22→15:52)
[2016-09-20] MEDS: Sucralfate 1 GM TABLET PO SCH ×3 (08:22→21:14)
[2016-09-20] MEDS: Magnesium Oxide 400 MG TABLET PO SCH ×3 (08:22→21:14)
[2016-09-20] MEDS: *HR* LORazepam 0.5 MG TABLET PO PRN ×2 (08:25→21:14)
--- NOTE | 2016-09-20 15:14 | Internal Med Progress Note ---
Date of Encounter: 09/20/16 Time of Encounter: 15:12 - Assessment and plan (1) Arthritis of left knee Current Visit: Yes Status: Chronic Assessment and plan: Probably an acute attack of arthritis is really left her painful joint and limited her ambulation which is now improving (2) Hypomagnesemia Current Visit: No Status: Acute Assessment and plan: Watch the magnesium she is receiving. 3 times a day. (3) Atrial arrhythmia Current Visit: No Status: Acute Assessment and plan: No evidence of uncontrolled heart rate (4) CAD (coronary artery disease) Current Visit: No Status: Chronic Qualifiers: Coronary Disease-Associated Artery/Lesion type: [place] artery [place] vs. transplanted heart: [place] heart Associated angina: without angina Qualified Code(s): I25.10 - Atherosclerotic heart disease of [place] coronary artery without angina pectoris (5) Anemia Current Visit: No Status: Chronic Assessment and plan: We will keep an eye on hemoglobin. Qualifiers: Anemia type: other cause Other causes of anemia: acute posthemorrhagic Qualified Code(s): D62 - Acute posthemorrhagic anemia - Time Spent With Patient less than 15 minutes - Subjective Interval history: I am very pleased to say that she is complaining of little less pain and feels the prednisones helping. sHe walked around the room which was excellent that is in the gym - Constitutional Vitals: Temp Pulse Resp BP Pulse Ox 99.4 F 85 18 99/64 97 09/20/16 07:00 09/20/16 07:00 09/20/16 07:00 09/20/16 07:00 09/20/16 07:00 General appearance: Present: cachectic, A&O X 3, no acute distress - Head Head exam: Present: atraumatic, normal inspection, normocephalic - Neck Neck exam general surgery: Present: supple, trachea midline. Absent: lymphadenopathy - Respiratory Respiratory exam: Present: CTAB. Absent: accessory muscle use, rales, rhonchi, wheezes - Cardiovascular Cardiovascular exam: Present: RRR, +S1, +S2. Absent: diastolic murmur, gallop, rubs, systolic murmur - GI/Abdominal GI/Abdominal exam: Present: normal bowel sounds, soft, no peritoneal signs. Absent: distended, tenderness Internal Medicine: Result - Labs CBC & Chem 7: 09/17/16 05:15 09/19/16 04:50 Labs: As I mentioned the pain is improved prednisone seems to be working the patient' s doing more each day - ABG Interpretation ABG results: PT/INR, D-dimer PT 14.0 Seconds (9.4-12.1) H 09/12/16 04:50 Consult Discharge Plan - Plan Referrals: Albino Lindsay MD [Partnered Physician] - 10/01/16 10:30 am (referral is for [place] [facility], if patient is discharge she may want to see Dr. Manley in [place]. Patient will have to cancel and reschedule if preferred. Current appointment is with Dr. Lindsay but patient has seen Sindhu in past) Tha Sanchez Jr, MD [Primary Care Provider] -
[2016-09-21] MEDS: *HR* OxyCODONE/APAP 7.5/325 TABLET PO PRN ×5 (03:55→21:50)
[2016-09-21 05:48] LABS: Hematocrit 26.6 % (35.3-44.9); Hemoglobin 8.7 g/dL (11.5-15.4)
[2016-09-21] MEDS: *HR* Enoxaparin 40 MG/0.4 ML SYRINGE SQ SCH (06:58)
[2016-09-21] MEDS: *HR* OxyCODONE ER (12 HR) 20 MG TABLET PO SCH ×2 (06:58→17:23)
[2016-09-21] MEDS: Sucralfate 1 GM TABLET PO SCH ×3 (09:26→21:47)
[2016-09-21] MEDS: Metoprolol XL (24 HR) Succ 25 MG TAB.ER.24H PO SCH (09:26)
[2016-09-21] MEDS: Magnesium Oxide 400 MG TABLET PO SCH ×3 (09:26→21:48)
[2016-09-21] MEDS: Furosemide 40 MG TABLET PO SCH ×2 (09:26→16:31)
[2016-09-21] MEDS: MetroNIDAZOLE 500 MG TABLET PO SCH ×3 (09:27→21:48)
[2016-09-21] MEDS: *HR* LORazepam 0.5 MG TABLET PO PRN ×2 (09:29→21:49)
--- NOTE | 2016-09-21 14:10 | Internal Med Progress Note ---
Date of Encounter: 09/21/16 Time of Encounter: 14:08 - Assessment and plan (1) Arthritis of left knee Current Visit: Yes Status: Chronic Assessment and plan: Patient had looks acute arthritis attack causing a lot of pain and she was unable to ambulate (2) Hypomagnesemia Current Visit: No Status: Acute Assessment and plan: Continue to watch magnesium (3) Atrial arrhythmia Current Visit: No Status: Acute Assessment and plan: No evidence poorly controlled rhythm (4) CAD (coronary artery disease) Current Visit: No Status: Chronic Assessment and plan: By history noted Qualifiers: Coronary Disease-Associated Artery/Lesion type: [place] artery [place] vs. transplanted heart: [place] heart Associated angina: without angina Qualified Code(s): I25.10 - Atherosclerotic heart disease of [place] coronary artery without angina pectoris (5) Anemia Current Visit: No Status: Chronic Assessment and plan: Noted Qualifiers: Anemia type: other cause Other causes of anemia: acute posthemorrhagic Qualified Code(s): D62 - Acute posthemorrhagic anemia - Time Spent With Patient less than 15 minutes - Subjective Interval history: I am very pleased to say that she is complaining of little less pain and feels the prednisones helping. sHe walked around the room which was excellent that is in the gym. Patient continues to improve. She walked 50 feet daily which is a very significant improvement - Constitutional Vitals: Temp Pulse Resp BP Pulse Ox 98 F 96 17 104/68 96 09/21/16 07:00 09/21/16 07:00 09/21/16 07:00 09/21/16 07:00 09/21/16 07:00 General appearance: Present: cachectic, A&O X 3, no acute distress - Head Head exam: Present: atraumatic, normocephalic - Neck Neck exam general surgery: Present: supple, trachea midline. Absent: lymphadenopathy - Respiratory Respiratory exam: Present: CTAB. Absent: accessory muscle use, rales, rhonchi, wheezes - Cardiovascular Cardiovascular exam: Present: RRR, +S1, +S2. Absent: diastolic murmur, gallop, rubs, systolic murmur Internal Medicine: Result - Labs CBC & Chem 7: 09/21/16 05:00 09/19/16 04:50 Labs: Short CBC 09/21/16 Range/Units 05:00 Hgb 8.7 L (11.5-15.4) g/dL Hct 26.6 L (35.3-44.9) % Lab is stable - ABG Interpretation ABG results: PT/INR, D-dimer PT 14.0 Seconds (9.4-12.1) H 09/12/16 04:50 Consult Discharge Plan - Plan Referrals: Albino Lindsay MD [Partnered Physician] - 10/01/16 10:30 am (referral is for [facility], if patient is discharge she may want to see Dr. Manley in [place]. Patient will have to cancel and reschedule if preferred. Current appointment is with Dr. Lindsay but patient has seen Sindhu in past) Tha Sanchez Jr, MD [Primary Care Provider] -
[2016-09-22] MEDS: *HR* Enoxaparin 40 MG/0.4 ML SYRINGE SQ SCH (04:55)
[2016-09-22] MEDS: *HR* OxyCODONE ER (12 HR) 20 MG TABLET PO SCH ×2 (04:55→18:06)
[2016-09-22] MEDS: *HR* OxyCODONE/APAP 7.5/325 TABLET PO PRN ×3 (08:52→21:51)
[2016-09-22] MEDS: Furosemide 40 MG TABLET PO SCH ×2 (08:52→18:06)
[2016-09-22] MEDS: Sucralfate 1 GM TABLET PO SCH ×3 (08:52→21:51)
[2016-09-22] MEDS: MetroNIDAZOLE 500 MG TABLET PO SCH ×3 (08:53→21:51)
[2016-09-22] MEDS: Metoprolol XL (24 HR) Succ 25 MG TAB.ER.24H PO SCH (08:53)
[2016-09-22] MEDS: Magnesium Oxide 400 MG TABLET PO SCH ×3 (08:53→21:51)
[2016-09-22] MEDS: *HR* LORazepam 0.5 MG TABLET PO PRN ×2 (12:01→21:51)
--- NOTE | 2016-09-22 12:05 | Internal Med Progress Note ---
Date of Encounter: 09/22/16 Time of Encounter: 12:04 - Assessment and plan (1) Weakness Current Visit: Yes Status: Chronic Assessment and plan: PT OT working on improving strength. Has electrolytes issues. Watch electrolytes. - Time Spent With Patient less than 15 minutes - Subjective Interval history: States that she has less swelling since Lasix was increased. Still complains of generalized weakness. Still complains of chronic pain. . No shortness of breath. No chest pain - Constitutional Vitals: Temp Pulse Resp BP Pulse Ox 97.7 F 99 18 96/57 96 09/22/16 07:07 09/22/16 07:07 09/22/16 07:07 09/22/16 07:07 09/22/16 07:07 General appearance: Present: cachectic, A&O X 3, no acute distress - Respiratory Respiratory exam: Present: CTAB. Absent: accessory muscle use, rales, rhonchi, wheezes - Cardiovascular Cardiovascular exam: Present: RRR, +S1, +S2. Absent: diastolic murmur, gallop, rubs, systolic murmur - GI/Abdominal GI/Abdominal exam: Present: normal bowel sounds, soft, no peritoneal signs. Absent: distended, tenderness - Extremities Exam Extremities exam: Present: pedal edema Internal Medicine: Result - Labs CBC & Chem 7: 09/21/16 05:00 09/19/16 04:50 - ABG Interpretation ABG results: PT/INR, D-dimer PT 14.0 Seconds (9.4-12.1) H 09/12/16 04:50 Consult Discharge Plan - Plan Referrals: Albino Lindsay MD [Partnered Physician] - 10/01/16 10:30 am (referral is for [facility], if patient is discharge she may want to see Dr. Manley in [place]. Patient will have to cancel and reschedule if preferred. Current appointment is with Dr. Lindsay but patient has seen Sindhu in past) Tha Sanchez Jr, MD [Primary Care Provider] -
[2016-09-23] MEDS: *HR* Enoxaparin 40 MG/0.4 ML SYRINGE SQ SCH (05:06)
[2016-09-23] MEDS: *HR* OxyCODONE ER (12 HR) 20 MG TABLET PO SCH ×2 (05:06→17:06)
[2016-09-23] MEDS: *HR* OxyCODONE/APAP 7.5/325 TABLET PO PRN ×2 (08:43→22:42)
[2016-09-23] MEDS: MetroNIDAZOLE 500 MG TABLET PO SCH ×3 (08:43→22:42)
[2016-09-23] MEDS: *HR* LORazepam 0.5 MG TABLET PO PRN ×2 (08:43→22:42)
[2016-09-23] MEDS: Magnesium Oxide 400 MG TABLET PO SCH ×3 (08:44→22:42)
[2016-09-23] MEDS: Sucralfate 1 GM TABLET PO SCH ×3 (08:44→22:41)
[2016-09-23] MEDS: Metoprolol XL (24 HR) Succ 25 MG TAB.ER.24H PO SCH (08:44)
[2016-09-23] MEDS: Furosemide 40 MG TABLET PO SCH ×2 (08:44→17:06)
--- NOTE | 2016-09-23 10:52 | Internal Med Progress Note ---
Date of Encounter: 09/23/16 Time of Encounter: 10:51 - Assessment and plan (1) Weakness Current Visit: Yes Status: Chronic Assessment and plan: PT OT working on improving strength. Has electrolytes issues. Check potassium level in the morning Watch electrolytes. - Time Spent With Patient less than 15 minutes - Subjective Interval history: Feels as though she is getting stronger. The shortness of breath on exertion. States that she has less swelling since Lasix was increased. Still complains of generalized weakness. Still complains of chronic pain. . No shortness of breath. No chest pain - Constitutional Vitals: Temp Pulse Resp BP Pulse Ox 97.6 F 98 18 100/62 95 09/23/16 06:56 09/23/16 06:56 09/23/16 06:56 09/23/16 06:56 09/23/16 06:56 General appearance: Present: cachectic, A&O X 3, no acute distress - Respiratory Respiratory exam: Present: CTAB. Absent: accessory muscle use, rales, rhonchi, wheezes - Cardiovascular Cardiovascular exam: Present: RRR, +S1, +S2. Absent: diastolic murmur, gallop, rubs, systolic murmur - GI/Abdominal GI/Abdominal exam: Present: normal bowel sounds, soft, no peritoneal signs. Absent: distended, tenderness - Extremities Exam Extremities exam: Present: pedal edema, warm, radial pulses palpable and symetrical. Absent: calf tenderness, cyanotic Internal Medicine: Result - Labs CBC & Chem 7: 09/21/16 05:00 09/19/16 04:50 - ABG Interpretation ABG results: PT/INR, D-dimer PT 14.0 Seconds (9.4-12.1) H 09/12/16 04:50 Consult Discharge Plan - Plan Referrals: Albino Lindsay MD [Partnered Physician] - 10/01/16 10:30 am (referral is for [facility], if patient is discharge she may want to see Dr. Manley in [place]. Patient will have to cancel and reschedule if preferred. Current appointment is with Dr. Lindsay but patient has seen Sindhu in past) Tha Sanchez Jr, MD [Primary Care Provider] -
[2016-09-24] MEDS: *HR* OxyCODONE ER (12 HR) 20 MG TABLET PO SCH ×2 (04:43→16:18)
[2016-09-24] MEDS: *HR* Enoxaparin 40 MG/0.4 ML SYRINGE SQ SCH (04:43)
[2016-09-24 05:52] LABS: Basophils % 0.3 %; Eosinophils # 0.1 K/mcL (0.0-0.6); Eosinophils % 0.8 %; Hematocrit 28.5 % (35.3-44.9); Hemoglobin 9.2 g/dL (11.5-15.4); Immature Granulocytes % 0.3 % (0-4); Lymphocytes # 1.9 K/mcL (0.6-4.6); Lymphocytes % 28.6 %; Mean Corpuscular HGB Conc 32.3 g/dL (31.6-35.5); Mean Corpuscular Hemoglobin 30.1 pg (28.0-33.3); Mean Corpuscular Volume 93.1 fL (83.0-100.0); Mean Platelet Volume 9.4 fL (9.4-12.4); Monocytes # 1.1 K/mcL (0.0-1.3); Monocytes % 16.4 %; Neutrophils # 3.5 K/mcL (1.6-8.9); Platelet Count 297 K/mcL (140-400); Red Blood Count 3.06 M/mcL (3.82-4.97); Red Cell Distribution Width 15.4 % (11.5-14.5); Segmented Neutrophils % 53.6 %
[2016-09-24 06:02] LABS: BUN/Creatinine Ratio 19 (6-26); Blood Urea Nitrogen 11 mg/dL (7-20); Calcium 9.1 mg/dL (8.6-10.8); Carbon Dioxide 29 mEq/L (19-29); Chloride 96 mEq/L (98-109); Glucose 86 mg/dL (70-99); Osmolality,Calculated 277 (280-300); Potassium 2.6 mEq/L (3.5-4.5); Sodium 134 mEq/L (136-145); eGFR For African Americans > 60 (> 60); eGFR For Non-African Americans > 60 (> 60)
[2016-09-24] MEDS: Metoprolol XL (24 HR) Succ 25 MG TAB.ER.24H PO SCH (08:25)
[2016-09-24] MEDS: Furosemide 40 MG TABLET PO SCH ×2 (08:25→16:18)
[2016-09-24] MEDS: Magnesium Oxide 400 MG TABLET PO SCH ×3 (08:25→21:04)
[2016-09-24] MEDS: MetroNIDAZOLE 500 MG TABLET PO SCH ×3 (08:25→21:05)
[2016-09-24] MEDS: Sucralfate 1 GM TABLET PO SCH ×3 (08:26→21:04)
[2016-09-24] MEDS: *HR* LORazepam 0.5 MG TABLET PO PRN ×2 (08:26→21:04)
[2016-09-24] MEDS: *HR* OxyCODONE/APAP 7.5/325 TABLET PO PRN ×3 (08:26→21:05)
[2016-09-25] MEDS: *HR* Enoxaparin 40 MG/0.4 ML SYRINGE SQ SCH (05:11)
[2016-09-25] MEDS: *HR* OxyCODONE ER (12 HR) 20 MG TABLET PO SCH ×2 (05:12→17:25)
[2016-09-25] MEDS: *HR* LORazepam 0.5 MG TABLET PO PRN ×2 (08:49→20:50)
[2016-09-25] MEDS: Metoprolol XL (24 HR) Succ 25 MG TAB.ER.24H PO SCH (08:49)
[2016-09-25] MEDS: Sucralfate 1 GM TABLET PO SCH ×3 (08:49→20:49)
[2016-09-25] MEDS: Furosemide 40 MG TABLET PO SCH ×2 (08:49→17:25)
[2016-09-25] MEDS: MetroNIDAZOLE 500 MG TABLET PO SCH ×3 (08:49→20:49)
[2016-09-25] MEDS: Magnesium Oxide 400 MG TABLET PO SCH ×3 (08:49→20:49)
[2016-09-25] MEDS: *HR* OxyCODONE/APAP 7.5/325 TABLET PO PRN ×3 (08:49→20:50)
[2016-09-26] MEDS ORDERED: *HR* OxyCODONE ER (12 HR) 20 MG TABLET PO SCH (06:00)
[2016-09-26] MEDS: *HR* Enoxaparin 40 MG/0.4 ML SYRINGE SQ SCH (06:24)
[2016-09-26 07:12] VITALS: BP 91/53
[2016-09-26] MEDS: *HR* OxyCODONE/APAP 7.5/325 TABLET PO PRN ×2 (09:23→14:42)
[2016-09-26] MEDS: *HR* LORazepam 0.5 MG TABLET PO PRN ×2 (09:23→14:42)
[2016-09-26] MEDS: Furosemide 40 MG TABLET PO SCH (09:24)
[2016-09-26] MEDS: Sucralfate 1 GM TABLET PO SCH ×2 (09:24→14:42)
[2016-09-26] MEDS: Magnesium Oxide 400 MG TABLET PO SCH ×2 (09:24→14:42)
[2016-09-26] MEDS: Metoprolol XL (24 HR) Succ 25 MG TAB.ER.24H PO SCH (09:24)
--- NOTE | 2016-09-26 10:53 | Physician Discharge Referral ---
Home Health/Hosp Referral Info Transfer to: Home Health Provider in Charge Post Discharge: PCP - Diagnosis (1) Arthritis of left knee Priority: Primary Status: Chronic (2) Hypomagnesemia Priority: Primary Status: Acute (3) Atrial arrhythmia Priority: Secondary Status: Acute (4) CAD (coronary artery disease) Priority: Secondary Status: Chronic (5) Anemia Priority: Secondary Status: Chronic - Respiratory Orders Smoking Cessation: Smoking cessation has been advised. For more information, call the [place] Tobacco Quit Line at 7-761-IQQG-NOW. - Services Needed Following services are medically necessary services: Nursing, Physical Therapy Other Treatments: check magnesium level in 1 week - Transfer Medications Prescriptions: Diclofenac Sodium [Voltaren] 4 gm TP QID PRN #4 gel..gram. PRN Reason: Pain Docusate [Colace] 100 mg PO BID #30 capsule Magnesium Oxide [Mag-Ox] 400 mg PO TID #60 tablet Metoprolol XL (24 HR) Succ [Toprol Xl] 12.5 mg PO DAILY #60 tab.er.24h Omeprazole [PriLOSEC] 20 mg PO BIDAC #30 capsule. Potassium Chloride 20 meq PO DAILY #60 tab.er.prt Simvastatin [Zocor] 40 mg PO HS #30 tablet Home Medications: Multivitamin [Multivitamins] 1 tab PO DAILY 04/09/16 [History] OxyCODONE/APAP 7.5/325 [Percocet 7.5/325 MG] 1 each PO Q3HR PRN #12 tablet 09/11 [Rx] Diclofenac Sodium [Voltaren] 4 gm TP QID PRN #4 gel..gram. 09/25/16 [Rx] Docusate [Colace] 100 mg PO BID #30 capsule 09/25/16 [Rx] Magnesium Oxide [Mag-Ox] 400 mg PO TID #60 tablet 09/25/16 [Rx] Metoprolol XL (24 HR) Succ [Toprol Xl] 12.5 mg PO DAILY #60 tab.er.24h 09/25/16 [Rx] Omeprazole [PriLOSEC] 20 mg PO BIDAC #30 capsule. 09/25/16 [Rx] Potassium Chloride 20 meq PO DAILY #60 tab.er.prt 09/25/16 [Rx] Simvastatin [Zocor] 40 mg PO HS #30 tablet 09/25/16 [Rx] Allergies/Adverse Reactions: Allergies No Known Allergies Allergy (Verified 04/09/16 07:21) Certification: Further, I certify that my clinical findings support that this patient is homebound (i.e. absences from home require considerable and taxing effort and are for medical reasons or rastafari services or infrequently or short duration when for other reasons) because: Homebound Reason: Patient requires assistance of a person or device to safely leave home Attestation: My signature below is to certify that this patient is under my care and that I, or nurse practitioner, or a physician's assistant professor of forestry working with me, has a face-to -face encounter with this patient.
--- NOTE | 2016-09-28 12:59 | Discharge Summary ---
Date of Encounter: 09/26/16 Time of Encounter: 12:57 - Discharge Diagnosis (1) Arthritis of left knee Priority: Primary Status: Chronic (2) Hypomagnesemia Priority: Secondary Status: Acute (3) Atrial arrhythmia Priority: Secondary Status: Acute (4) CAD (coronary artery disease) Priority: Secondary Status: Chronic Qualifiers: Coronary Disease-Associated Artery/Lesion type: [place] artery [place] vs. transplanted heart: [place] heart Associated angina: without angina Qualified Code(s): I25.10 - Atherosclerotic heart disease of [place] coronary artery without angina pectoris (5) Anemia Priority: Secondary Status: Chronic Qualifiers: Anemia type: other cause Other causes of anemia: acute posthemorrhagic Qualified Code(s): D62 - Acute posthemorrhagic anemia - Discharge Medications Prescriptions: Diclofenac Sodium [Voltaren] 4 gm TP QID PRN #4 gel..gram. PRN Reason: Pain Docusate [Colace] 100 mg PO BID #30 capsule Magnesium Oxide [Mag-Ox] 400 mg PO TID #60 tablet Metoprolol XL (24 HR) Succ [Toprol Xl] 12.5 mg PO DAILY #60 tab.er.24h Omeprazole [PriLOSEC] 20 mg PO BIDAC #30 capsule. Potassium Chloride 20 meq PO DAILY #60 tab.er.prt Simvastatin [Zocor] 40 mg PO HS #30 tablet Home Medications: Multivitamin [Multivitamins] 1 tab PO DAILY 04/09/16 [History] OxyCODONE/APAP 7.5/325 [Percocet 7.5/325 MG] 1 each PO Q3HR PRN #12 tablet 09/11 [Rx] Diclofenac Sodium [Voltaren] 4 gm TP QID PRN #4 gel..gram. 09/25/16 [Rx] Docusate [Colace] 100 mg PO BID #30 capsule 09/25/16 [Rx] Magnesium Oxide [Mag-Ox] 400 mg PO TID #60 tablet 09/25/16 [Rx] Metoprolol XL (24 HR) Succ [Toprol Xl] 12.5 mg PO DAILY #60 tab.er.24h 09/25/16 [Rx] Omeprazole [PriLOSEC] 20 mg PO BIDAC #30 capsule. 09/25/16 [Rx] Potassium Chloride 20 meq PO DAILY #60 tab.er.prt 09/25/16 [Rx] Simvastatin [Zocor] 40 mg PO HS #30 tablet 09/25/16 [Rx] Allergies/Adverse Reactions: Allergies No Known Allergies Allergy (Verified 04/09/16 07:21) Date of admission: 09/11/16 15:24 Primary care physician: Tha Sanchez Jr, MD Consults: 09/11/16 16:03 Consult to Occupational Therapy [CONS] Routine Comment: rehab Consult to Physical Therapy [CONS] Routine Comment: rehab Consult to Recreational Therapy [CONS] Routine Comment: Consult to Quality Control Chemist [CONS] Routine Reason for SW Consult: Swing for deconditioning 09/13/16 05:18 Consult to Wound Care [CONS] Routine Reason for Consult: 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 Call Completed: No 09/18/16 11:41 Consult to Psychology [CONS] Routine Consulting Provider: Leanna Huynh Reason for Consult: pain Time Notified: 12:00 Call Completed: No 09/19/16 11:54 Consult to Cardiology [CONS] Routine Comment: Consulting Provider: Cardiology Agatha Reason for Consult: for follow up from cardiac arrest Call Completed: Yes Discharging clinician: Pan Dawkins Anticipated date of discharge: 09/26/16 - Patient Status Disposition: Home Health Service Condition: Good - Discharge Instructions Instructions: Hypokalemia (DC), Hypomagnesemia (DC) Follow Up With: Albino Lindsay MD [Partnered Physician] - 10/01/16 10:30 am (referral is for [facility], if patient is discharge she may want to see Dr. Manley in [place]. Patient will have to cancel and reschedule if preferred. Current appointment is with Dr. Lindsay but patient has seen Sindhu in past) Tha Sanchez Jr, MD [Primary Care Provider] - 10/15/16 12:00 pm Interval History: Mrs. maciel came in for deconditioning and very painful knee . She is improved daily Hospital course: Ms. Maciel is a 86 year old female - Time Spent with Patient Total time spent providing and/or coordinating discharge services: - Constitutional Vitals: Temp Pulse Resp BP Pulse Ox 98.1 F 94 15 91/53 93 09/26/16 07:00 09/26/16 07:00 09/26/16 07:00 09/26/16 07:00 09/26/16 07:00 General appearance: Present: cachectic, A&O X 3, no acute distress
== END 2016-09-26 15:40 | disposition home health service (06) | DRG 554 ==
LOC: INPGRE 15:24
PROVIDERS: ADMIT Internal Medicine; ATTEND Internal Medicine